=== PATIENT | female | born 1990 | race Caucasian/White ===

== ENCOUNTER 2024-04-10 12:15 | Emergency (ER) | payer OTHER, SELFPAY ==
[2024-04-10 12:23] VITALS: BP 141/87; PULSE 97; RESP 18; TEMP 37.3; O2SAT 99; BMI 41.1
--- NOTE | 2024-04-10 12:50 | DI.RAD.S_ITS ---
PROCEDURE: XR CHEST 2V INDICATIONS: sick for 2 weeks r/o pneumonia TECHNIQUE: 2 views of the chest were acquired. COMPARISON: None. FINDINGS: Surgical changes and devices: None. Lungs and pleura: Small focal infiltrate, apical portion of right middle lobe. No pleural effusions or pneumothorax. Mediastinum: Mediastinal contours are normal. Heart size is normal. Bones and chest wall: No suspicious bony abnormalities. Soft tissues appear unremarkable. IMPRESSION: Focal pneumonia, right middle lobe. Comment: Progress films are recommended until clear. Dictated by: Richmond Cesar M.D. on 04/10/2024 at 13:30 Approved by: Richmond Cesar M.D. on 04/10/2024 at 13:31
--- NOTE | 2024-04-10 12:58 | ED.URI ---
HPI - URI/Sore Throat <Luisa Kohler PA-C - Last Filed: 04/10/24 13:48> General Chief Complaint: Upper Respiratory Symptoms Stated Complaint: poss pneumonia Time Seen by Provider: 04/10/24 12:58 Source: patient Mode of arrival: Ambulatory History of Present Illness HPI Narrative: Generally healthy 34-year-old woman presents with concern for possible pneumonia. Patient states that she has had a cough for 2-1/2 weeks. It has gradually worsened cough has become more harsh and she is now coughing up yellowish thick mucus. She states her primary other symptom is that she has been very tired. She says appetite has been normal she has not had nausea sore throat ear pain shortness of breath chest pain, vomiting or diarrhea. OTC cough medicines have done little to improve her symptoms.She says that her son developed a cough before she did and was diagnosed with walking pneumonia ( mycoplasma ). she denies any other complaints or concerns Related Data Previous Rx's Medication Instructions Recorded azithromycin 250 mg tablet See Rx Instructions PO .COMPLEX 04/10/24 PNA #6 tabs benzonatate 100 mg capsule 100 mg PO TID PRN cough 5 days #15 04/10/24 caps Allergies Allergy/AdvReac Type Severity Reaction Status Date / Time No Known Drug Allergies Allergy Verified 04/10/24 12:26 Review of Systems <Luisa Kohler PA-C - Last Filed: 04/10/24 13:48> Review of Systems Narrative: See HPI Patient History <Luisa Kohler PA-C - Last Filed: 04/10/24 13:48> Social History Smoking Status: Never smoker Smoking Status: Never smoker Exam <Luisa Kohler PA-C - Last Filed: 04/10/24 13:48> Narrative Exam Narrative: GENERAL: [34] year old patient appears stated age. Well-developed patient, in mild distress, nontoxic appearing. HEAD: Atraumatic. Normocephalic. EYES: Pupils equal round and reactive. Extraocular motions intact. No scleral icterus. No injection or drainage. ENT: Nose without bleeding, purulent drainage. Airway patent. NECK: Trachea midline. Non tender CARDIOVASCULAR: Regular rate and rhythm without murmurs, gallops, or rubs. RESPIRATORY: Mildly reduced lung sounds in the right lower. No wheezes, rales, or rhonchi. EXTREMITIES: moving all extremities normal gait NEURO: AOx3. SKIN: No rash or erythema of visible areas Initial Vital Signs Initial Vital Signs: Vital Signs Temperature 99.2 F 04/10/24 12:23 Pulse Rate 97 H 04/10/24 12:23 Respiratory Rate 18 04/10/24 12:23 Blood Pressure 141/87 H 04/10/24 12:23 Pulse Oximetry 99 04/10/24 12:23 Oxygen Delivery Method Room Air 04/10/24 12:23 <Rafaela Jenkins MD - Last Filed: 04/11/24 07:31> Initial Vital Signs Initial Vital Signs: Vital Signs Temperature 99.2 F 04/10/24 12:23 Pulse Rate 97 H 04/10/24 12:23 Respiratory Rate 18 04/10/24 12:23 Blood Pressure 141/87 H 04/10/24 12:23 Pulse Oximetry 99 04/10/24 12:23 Oxygen Delivery Method Room Air 04/10/24 12:23 Course <Luisa Kohler PA-C - Last Filed: 04/10/24 13:48> Orders Ordered: ED Orders 04/10/24 12:50 XR chest 2V Stat Vital Signs Vital signs: Vital Signs - 8 hr 04/10/24 12:23 Temperature 99.2 F Pulse Rate 97 H Respiratory Rate 18 Blood Pressure 141/87 H Pulse Oximetry 99 Oxygen Delivery Method Room Air <Rafaela Jenkins MD - Last Filed: 04/11/24 07:31> Orders Ordered: ED Orders 04/10/24 12:50 XR chest 2V Stat Vital Signs Vital signs: Vital Signs - 8 hr 04/10/24 12:23 Temperature 99.2 F Pulse Rate 97 H Respiratory Rate 18 Blood Pressure 141/87 H Pulse Oximetry 99 Oxygen Delivery Method Room Air MDM - URI/Sore Throat <Luisa Kohler PA-C - Last Filed: 04/10/24 13:48> Differential Diagnosis Differential diagnosis: Likely upper respiratory infection, viral infection and other ( pneumonia, mycoplasma) Medical Records Attestation: I reviewed the patient's medical records. Imaging Data Chest x-ray: My Impression: agree with Radiology interpretation Radiologist's Impression: [address] [address] XRay Report Signed Patient: Melinda Garcia MR#: [id number] : 1990 Acct:[id number] Age/Sex: 34 / F Date of Service: 04/10/24 Loc: ED Accession Number: [id number] Procedure: XR chest 2V Ordering Provider: Luisa Kohler PA-C PROCEDURE: XR CHEST 2V INDICATIONS: sick for 2 weeks r/o pneumonia TECHNIQUE: 2 views of the chest were acquired. COMPARISON: None. FINDINGS: Surgical changes and devices: None. Lungs and pleura: Small focal infiltrate, apical portion of right middle lobe. No pleural effusions or pneumothorax. Mediastinum: Mediastinal contours are normal. Heart size is normal. Bones and chest wall: No suspicious bony abnormalities. Soft tissues appear unremarkable. IMPRESSION: Focal pneumonia, right middle lobe. Comment: Progress films are recommended until clear. Dictated by: Richmond Cesar M.D. on 04/10/2024 at 13:30 Approved by: Richmond Cesar M.D. on 04/10/2024 at 13:31 [facility] Narrative Medical decision making narrative: this is a generally healthy 34-year-old woman presenting with concern for 2-1/2 weeks of cough worsening. With son positive for mycoplasma pneumonia. X-ray obtained for further evaluation. Patient's vitals are within normal limits very mild low-grade temp. Labs are not obtained. Lung sounds notable for slightly reduced in the right middle/ lower lobe. X-ray is consistent with a focal right middle lobe pneumonia. Suspect this is probably due to mycoplasma given patient's exposure. Prescription for azithromycin for 5 day course. Patient was advised to follow up with PCP, seek re-evaluation possible repeat x-ray if she feels she has not improved or had full resolution of symptoms after the antibiotics. Additionally prescription for 5 days of benzonatate. Return precautions provided, follow-up plan discussed, all questions answered. Discharge Plan Departure Patient Disposition: Home Clinical Impression: Pneumonia Qualifiers: Pneumonia type: due to unspecified organism Laterality: right Lung location: middle lobe of lung Qualified Code(s): J18.9 - Pneumonia, unspecified organism Activity Restrictions/Additional Instructions: *You have been diagnosed with [ Right middle lobe pneumonia] *What to do: *Please continue to take your regular medications as directed. [2 ] New medication prescriptions sent to your pharmacy: [ azithromycin antibiotic and benzonatate cough medicine ] [ ] New medication written as a paper prescription [ ] No new medications given *Please follow up with your primary care provider in 2-3 days, call for an appointment. Let them know you were seen in the Emergency Department and that we ask that you be seen in follow up. We will electronically transmit a record of today's note if your PCP is in our system. you came in today with about 2-1/2 weeks of worsening cough. Your x-ray does show a focal pneumonia of your right middle lung. It is very likely that this is mycoplasma as your son had this but we did not do viral testing today. The antibiotic prescribed should be appropriate to treat this but of course if you are not feeling better after the antibiotic or feel that you Re worsen you should see your primary care for follow up or possible repeat x-ray imaging to confirm resolution of the pneumonia. I also prescribed some cough medicine for you that may be helpful for the next few days as you begin to heal. I hope you feel better soon. *If you do not have a primary care provider please contact the [facility] Resource line at [phone]. They will ask some questions about your medical history and help get you set up with a doctor in the community. *Return to Emergency Department if you should have any new, worsening or concerning symptoms, such as [fever greater than 101 F, shaking chills, worsening pain, persistent vomiting or other bothersome symptoms] Prescriptions: New azithromycin 250 mg tablet See Rx Instructions .ROUTE .COMPLEX Qty: 6 0RF Rx Instructions: For 250 mg dose pack: take 500 mg today (day 1), then 250 mg for 4 days (days 2-5) benzonatate 100 mg capsule 100 mg PO TID PRN (Reason: cough) 5 Days Qty: 15 0RF Stand Alone Forms: Patient Portal/API/Survey ED Sign-out <Rafaela Jenkins MD - Last Filed: 04/11/24 07:31> Cosign ED Attending Anaature Attestation: I was immediately available in the department for consultation throughout this patient's visit. Rafaela Jenkins MD
[2024-04-10 14:00] VITALS: BP 136/79; PULSE 105; RESP 18; TEMP 36.8; O2SAT 97
== END 2024-04-10 14:03 | disposition home or self-care (01) ==
PROVIDERS: Emergency Provider Student in an Organized Health Care Education/Training Program
DX: J18.9 Pneumonia, unspecified organism (principal)
CPT/HCPCS: 71046; 99281; 99283